=== PATIENT | male | born 1960 | race Caucasian/White ===

== ENCOUNTER 2016-12-30 12:44 | Inpatient (IN) | payer SELFPAY ==
[~2016-12-30] VITALS: Ht 175.3 cm; Wt 74.1 kg
[2016-12-30] MEDS ORDERED: VALACYCLOVIR1 GM PO (12:57)
--- NOTE | 2016-12-30 12:57 | NUR ---
PT TO ROOM FOR EXAM
--- NOTE | 2016-12-30 13:21 | NUR ---
PT TRANSFERRED TO ROOM 10 VIA STRETCHER.
--- NOTE | 2016-12-30 13:39 | NUR ---
FLUIDS INFUSING, INSULIN GIVEN
--- NOTE | 2016-12-30 13:41 | NUR ---
PT MOVED TO ROOM 10, INSPECTION OF RIGHT GREAT TOE NOTED THAT TOE IS RED/SWOLLEN/ SKIN PEELING FROM TOP AND SIDES
[2016-12-30 13:48] LABS: HEMATOCRIT 38.8 % (39.0-50.0); HEMOGLOBIN 14.1 g/dl (14.0-18.0); IMMATURE GRANULOCYTES 0.8 % (0.0-1.0); MEAN CORPUSCULAR HGB 29.8 pG CALC (26.0-32.0); MEAN CORPUSCULAR HGB CONC 36.3 g/L CALC (32.0-36.0); NEUT# 9.92 thou/uL (1.82-7.42); RED BLOOD COUNT 4.73 mill/uL (4.70-6.10); RED CELL DISTRI WIDTH 11.1 % (11.5-15.5)
[2016-12-30 14:00] LABS: ALKALINE PHOSPHATASE 139 u/l (38-126); ANION GAP 18 (6-22 (CALC)); BILIRUBIN, TOTAL 0.5 mg/dL (0.0-1.4); BUN 12 mg/dL (9-20); BUN/CREATININE RATIO 16 (12-20 (CALC)); CALCIUM 9.6 mg/dL (8.4-10.2); CARBON DIOXIDE 28 mmol/l (22-30); CHLORIDE 87 mmol/l (95-108); CREATININE 0.8 mg/dL (0.7-1.3); GFR > 60 ML/MIN (>=60 (CALC)); GFR FOR AFR.AMER. > 60 ML/MIN (>=60 (CALC)); POTASSIUM 4.5 mmol/l (3.5-5.1); SGOT/AST 18 u/l (17-59); SGPT/ALT 28 u/l (21-72); SODIUM 129 mmol/l (137-146)
[2016-12-30 14:11] LABS: GLUCOSE 559 mg/dL (75-110)
[2016-12-30 14:12] LABS: MYOGLOBIN 15 ng/mL (0 - 121)
--- NOTE | 2016-12-30 14:25 | NUR ---
DR. SEBASTIAN SPEAKING WITH ABOUT POSSIBLE ADMISSION
--- NOTE | 2016-12-30 14:50 | NUR ---
PT RESTING QUIETLY ON STRETCHER, AWAITING ADMISSION. PICTURES TAKEN OF TOE FOR WOUND DOCUMENTATION. WILL SEND TO THE FLOOR
--- NOTE | 2016-12-30 15:00 | NUR ---
ACCUCHECK RETAKEN 304
--- NOTE | 2016-12-30 15:37 | NUR ---
SBAR PRINTED TO [facility] AT 2115
[2016-12-30 15:48] LABS: URINE BILIRUBIN - DIPSTICK NEGATIVE (NEGATIVE); URINE BLOOD DIPSTICK TRACE-INTACT (NEGATIVE); URINE CLARITY CLEAR; URINE COLOR YELLOW; URINE GLUCOSE - DIPSTICK >=1000 mg/dL (NEGATIVE); URINE KETONE NEGATIVE (NEGATIVE); URINE LEUK ESTERASE NEGATIVE (NEGATIVE); URINE NITRITE - DIPSTICK NEGATIVE (Negative); URINE PROTEIN - DIPSTICK NEGATIVE (NEG-TRACE); URINE SPECIFIC GRAVITY <=1.005; URINE UROBILINOGEN - DIPSTICK 0.2 E.U./dL (0.2)
--- NOTE | 2016-12-30 16:23 | NUR ---
DR. BRANNON IN SEEING PT AT THIS TIME, ACCUCHECK 252
--- NOTE | 2016-12-30 16:35 | NUR ---
DR. BETANCOURT IS DEBRIDING GREAT TOE, PT TOLERATING WELL.
--- NOTE | 2016-12-30 16:55 | NUR ---
START VANCOMYCIN 1 GRAM Q12H Age: 56 years Weight: 73 kg Height: 69 in Gender: Male SCR: 0.8 mg/dl Dosing weight: 73 kg CRCL (ml/min): 104.3 NEXT TROUGH DUE 01/01 BEFORE AM DOSE
--- NOTE | 2016-12-30 17:12 | NUR ---
REPORT GIVEN TO ICU FOR CONTINUATION OF CARE
--- NOTE | 2016-12-30 17:35 | NUR ---
PT ARRIVED TO THE FLOOR VIA STRETCHER AND ONE PERSON ASSISTANCE FROM NURSING STAFF. PT AMBULATORY FROM STRETCHER TO BED. PT APPREHENSIVE OF HAVING ASSISTANCE IN REGARDS TO FOOT WITH BANDAGE. PT STATES "ILL DO IT MYSELF." PT ASSESSED AND HISTORY OBTAINED. ORIENTATED TO ROOM, RIGHTS, RESPONSIBILITIES, AND CALL LIGHT. INSTRUCTED PT TO CALL FOR ASSISTANCE, PT VERBALIZES UNDERSTANDING.
--- NOTE | 2016-12-30 18:22 | NUR ---
CONSENT OBTAINED AND SIGNED AT THIS TIME, FOR INCISION AND DRAINAGE OF RIGHT GREAT TOE WITH POSSIBLE AMPUTATION OF RIGHT GREAT TOE. PT DENIES ANY QUESTIONS AT THIS TIME, TYLENOL GIVEN FOR FEVER OF 101.5. MD AWARE. IV FLUIDS AND ABX INFUSING THROUGH PATENT IV SITE. PT DENIES PAIN AT THIS TIME. CALL LIGHT WITHIN REACH. INSTRUCTED PT TO CALL FOR ASSISTANCE, PT VERBALIZES UNDERSTANDING.
--- NOTE | 2016-12-30 18:50 | NUR ---
REPORT RECEIVED FROM VALARIE GOMEZ RN AND SELENA MUELLER LPN; ASSUMED PT CARE; INTRODUCED SELF TO PT; DENIES NEEDS AT THIS TIME; NOT DISTRESS NOTED; RESP EVEN AND UNLABORED; CALL ZENDEJAS IS WITHIN REACH WILL CONTINUE TO MONITOR.
--- NOTE | 2016-12-30 19:45 | NUR ---
REPORT CALLED TO JOSSUE ESCOBAR IN MED/SURG AT THIS TIME.
[2016-12-30 20:20] VITALS: BP 135/80
--- NOTE | 2016-12-30 20:20 | NUR ---
PT ARRIVED TO UNIT VIA WHEELCHAIR WITH MAXI DAO. AMBULATED TO BED WITH SUPERVISION. PT ORIENTED TO ROOM. DENIES PAIN AT THIS TIME. RESPIRATIONS EVEN AND UNLABORED. PLAN OF CARE DISCUSSED. PT ENCOURAGED TO VERBALIZE CONCERNS. STATES UNDERSTANDING. SAFETY MEASURES IN PLACE. BED CRADLE APPLIED TO BED PER PT REQUEST. CALL LIGHT SYSTEM REVIEWED AND IN REACH.
--- NOTE | 2016-12-30 20:20 | NUR ---
THIS [facility] TRANSPORTED PT VIA W/C, IV TO MED/SURG ROOM 283; X2 FAMILY MEMBERES ACCOMPANIED PT; PT TOLERATED ACTIVITY WELL. INTRODUCED PT TO NURSE.
[2016-12-30 23:54] VITALS: BP 145/83
[2016-12-31] VITALS (7 sets, daily range): BP systolic 125–165; BP diastolic 68–89
--- NOTE | 2016-12-31 00:20 | NUR ---
PT RESTING IN BED WATCHING TV. DENIES PAIN. HAS NO REQUESTS AT THIS TIME. RESPIRATIONS EVEN AND UNLABORED. SAFETY MEASURES IN PLACE. CALL LIGHT WITHIN REACH.
--- NOTE | 2016-12-31 04:12 | NUR ---
PT ASLEEP AT THIS TIME. NO SIGNS OF PAIN/DISTRESS. RESPIRATIONS EVEN AND UNLABORED. ABT INFUSED; PT TOLERATED WELL. SAFETY MEASURES IN PLACE. CALL LIGHT WITHIN REACH.
--- NOTE | 2016-12-31 07:00 | NUR ---
SHIFT CHANGE REPORT FROM NINFA ESCOBAR AWAKE ALERT AND ORIENTED RESTING IN BED, NO C/O DISCOMFORT AT THIS TIME, CALL ZENDEJAS IN REACH.
--- NOTE | 2016-12-31 07:48 | NUR ---
OR STAFF HERE AT THIS TIME TO TRANSORT PT DOWN TO OR FOR PROCEDURE, LEAVING UNIT NOW.
--- NOTE | 2016-12-31 10:31 | NUR ---
REPORT RECEIVED FROM MILLI IN PACU, PT ARRIVED ON UNIT VIA STRETCHER AND SETTLED IN BED, R. LEG ELEVATED ON PILLOWS, SURGICAL DRESSING CLEAN DRY AND INTACT, NO SIGN DRAINAGE, VITAL SIGNS BEING MONITORED, CALL ZENDEJAS IN REACH. FAMILY AT BEDSIDE.
--- NOTE | 2016-12-31 15:10 | NUR ---
DR ROBLEDO CALLED TO INQUIRE ABOUT FURTHER TREATMENTS FOR PT, VOICE MESSAGE LEFT, AWAITING CALL-BACK.
--- NOTE | 2016-12-31 19:00 | NUR ---
RECEIVED REPORT ON PATIENT. PATIENT RESTING IN BED AND IN NO APPARENT DISTRESS. DENIES PAIN AT THIS TIME. OPERATIVE EXTREMETY LUI WRAPPED AND ELEVATED ON PILLOW. NO DRAINAGE NOTED. WILL CONTINUE TO MONITOR.
--- NOTE | 2016-12-31 19:59 | NUR ---
NAZ (RADIOLOGIST) QUESTIONED ULTRASOUND ORDERS, I CONTACTED DR CARRERA WHO INFORMED ME HE NEEDED AN FELICIA TEST (ANKLE BEACHIAL INDEX). CONTACTED NAZ WHO ADVICED TO ADD NOTE TO ORDERS.
--- NOTE | 2016-12-31 20:17 | NUR ---
DR CARRERA ORDER CONSULT FOR VASCULAR SURGEON AFTER VASCULAR STUDY IS DONE.
--- NOTE | 2017-01-01 | NUR ---
PATIENT RESTING QUIETLY WITH EYES CLOSED. NO ACUTE DISTRESS NOTED.
--- NOTE | 2017-01-01 04:00 | NUR ---
PATIENT LAYING IN BED AND AWAKE. PT'S NOT IN ANY APPARENT DISTRESS. PT STATES "I CAN'T GET COMFORTABLE". OPERATIVE EXTREMETY ELEVATED ON PILLOW. DENIES PAIN.
[2017-01-01 04:06] VITALS: BP 169/95
[2017-01-01 05:23] VITALS: BP 134/81
[2017-01-01 05:53] LABS: HEMATOCRIT 32.4 % (39.0-50.0); HEMOGLOBIN 11.5 g/dl (14.0-18.0); IMMATURE GRANULOCYTES 1.2 % (0.0-1.0); MEAN CELL VOLUME 83.1 fL CALC (80.0-100.0); MEAN CORPUSCULAR HGB 29.5 pG CALC (26.0-32.0); MEAN CORPUSCULAR HGB CONC 35.5 g/L CALC (32.0-36.0); RED BLOOD COUNT 3.9 mill/uL (4.70-6.10); RED CELL DISTRI WIDTH 11.2 % (11.5-15.5)
[2017-01-01 06:04] LABS: ANION GAP 13 (6-22 (CALC)); BUN 9 mg/dL (9-20); BUN/CREATININE RATIO 13 (12-20 (CALC)); CALCIUM 8.5 mg/dL (8.4-10.2); CARBON DIOXIDE 27 mmol/l (22-30); CHLORIDE 97 mmol/l (95-108); CREATININE 0.7 mg/dL (0.7-1.3); GFR > 60 ML/MIN (>=60 (CALC)); GFR FOR AFR.AMER. > 60 ML/MIN (>=60 (CALC)); GLUCOSE 208 mg/dL (75-110); POTASSIUM 3.9 mmol/l (3.5-5.1); SODIUM 132 mmol/l (137-146)
--- NOTE | 2017-01-01 07:00 | NUR ---
RECEIVED BEDSIDE REPORT FROM TRAM GERMAN. PT IN SEMI FOWLERS POSITION WITH RIGHT FOOT ELEVATED ON 3 PILLOWS. DRESSING TO RIGHT FOOT CDI. SCD TO LEFT LOWER EXTREMITY. RESPS EVEN AND UNLABORED ON ROOM AIR. #20 LAC INFUSING WITHOUT DIFFICULTY, SITE APPEARS HEALTHY. DENIES PAIN OR DISCOMFORT. PLAN OF CARE DISCUSSED. SAFETY PRECAUTIONS REINFORCED. BED IN LOWEST POSITION WITH WHEELS LOCKED. CALL LIGHT WITHIN REACH. ENCOURAGED PT TO CALL FOR ANY NEEDS.
--- NOTE | 2017-01-01 07:00 | NUR ---
REPORT GIVEN TO JOSH GERMAN. NURSE WAS INFORMED TO CONSULT DR DUNAWAY AFTER VASCULAR STUDY IS DONE.
[2017-01-01 07:32] VITALS: BP 156/89
--- NOTE | 2017-01-01 08:15 | NUR ---
Vancomycin single level analysis: Current dose being given: 1000 mg Current dosing interval: 12 hrs Current infusion time (hrs): 2 Diagnosis:TOE INFECTION Recommendations: Give Vancomycin 1000 mg q 8 hrs. Infuse over 2 HOURS Renal dosing of other antibiotics (review renal dosing of other medications and list guidelines here): Thank you for the consult, will continue to follow. Signature: PERCY JJ PHARMD
--- NOTE | 2017-01-01 13:11 | NUR ---
TO ULTRASOUND IN STABLE CONDITION VIA WHEELCHAIR ACCOMPANIED BY VOLUNTEER.
--- NOTE | 2017-01-01 14:05 | NUR ---
FROM ULTRASOUND VIA WHEELCHAIR ACCOMPANIED BY VOLUNTEER. TRANSFERRED TO BED WITH STAND BY ASSIST. NON WEIGHT BEARING RIGHT FOOT. DRESSING TO RIGHT FOOT CDI, SURGICAL SHOE IN PLACE. SCD TO LEFT LOWER EXTREMITY. #20 LAC FLUSES WELL, INFUSING WITHOUT DIFFICULTY, SITE APPEARS HEALTHY. RIGHT FOOT PROPPED ON 3 PILLOWS. CALL LIGHT WITHIN REACH. WILL CONTINUE TO MONITOR.
--- NOTE | 2017-01-01 15:56 | NUR ---
IN SEMI FOWLERS WITH RIGHT FOOT ELEVATED ON 3 PILLOWS. RESPS EVEN AND UNLABORED ON ROOM AIR. DRESSING TO RIGHT FOOT CDI. SCD TO LEFT LOWER EXTREMITY. #20 LAC INFUSING WITHOUT DIFFICULTY, SITE APPEARS HEALTHY. VOICES NO C/O. VISITORS AT BEDSIDE. CALL LIGHT WITHIN REACH. ENCOURAGED PT TO CALL FOR ANY NEEDS.
[2017-01-01 16:00] VITALS: BP 138/84
--- NOTE | 2017-01-01 19:00 | NUR ---
RECEIVED BEDSIDE REPORT FROM MAXI MORENO. PATIENT LAYING IN BED. DENIES PAIN OR DISCOMFORT. PATIENT ABLE TO WIGGLE TOES ON OPERATIVE EXTREMETY.
[2017-01-01 19:22] VITALS: BP 159/83
[2017-01-02] VITALS (10 sets, daily range): BP systolic 131–175; BP diastolic 80–98
--- NOTE | 2017-01-02 | NUR ---
PATIENT LAYING IN BED WITH EYES CLOSED. NO ACUTE DISTRESS NOTED. IV FLUIDS INFUSING WITHOUT DIFFICULTY.
--- NOTE | 2017-01-02 04:00 | NUR ---
NO ACUTE CHANGES NOTED IN PATIENT'S CONDITION. LAYING IN BED WITH EYES CLOSED AND IS IN NO APPARENT DISTRESS.
[2017-01-02 05:56] LABS: HEMOGLOBIN 12.2 g/dl (14.0-18.0); IMMATURE GRANULOCYTES 2.4 % (0.0-1.0); MEAN CELL VOLUME 85.6 fL CALC (80.0-100.0); MEAN CORPUSCULAR HGB 29.8 pG CALC (26.0-32.0); MEAN CORPUSCULAR HGB CONC 34.9 g/L CALC (32.0-36.0); NEUT# 6.39 thou/uL (1.82-7.42); RED BLOOD COUNT 4.09 mill/uL (4.70-6.10); RED CELL DISTRI WIDTH 11.1 % (11.5-15.5)
[2017-01-02 06:30] LABS: ANION GAP 13 (6-22 (CALC)); BUN 7 mg/dL (9-20); BUN/CREATININE RATIO 12 (12-20 (CALC)); CALCIUM 8.9 mg/dL (8.4-10.2); CARBON DIOXIDE 28 mmol/l (22-30); CHLORIDE 98 mmol/l (95-108); CREATININE 0.6 mg/dL (0.7-1.3); GFR > 60 ML/MIN (>=60 (CALC)); GFR FOR AFR.AMER. > 60 ML/MIN (>=60 (CALC)); GLUCOSE 118 mg/dL (75-110); POTASSIUM 3.9 mmol/l (3.5-5.1); SODIUM 136 mmol/l (137-146)
--- NOTE | 2017-01-02 07:00 | NUR ---
RECEIVED BEDSIDE REPORT FROM TRAM GERMAN. PT RESTING IN SUPINE POSITION WITH EYES CLOSED, AWAKENS EASILY. RESPS EVEN AND UNLABORED ON ROOM AIR. RIGHT FOOT ELEVATED ON 3 PILLOWS, DRESSING CDI, SURGICAL BOOT IN PLACE. SCD TO LEFT LOWER EXTREMITY. #20 LAC INFUSING WITHOUT DIFFICULTY, SITE APPEARS HEALTHY. PLAN OF CARE DISCUSSED. SAFETY PRECAUTIONS REINFORCED. BED IN LOWEST POSITION WITH WHEELS LOCKED. CALL LIGHT WITHIN REACH. ENCOURAGED PT TO CALL FOR ANY NEEDS.
--- NOTE | 2017-01-02 08:15 | NUR ---
DR VAZQUEZ IN TO SEE PT, NO NEW ORDERS.
--- NOTE | 2017-01-02 08:34 | NUR ---
PHYSICAL THERAPY IN TO SEE PT.
--- NOTE | 2017-01-02 08:52 | NUR ---
PT WAS ABLE TO ASSUME SITTING FROM SUPINE INDEPENDENTLY. [id number] WITH WALKER. INSTRUCTED ON FALL PRECAUTIONS PRIOR TO AMBULATION. AMB FROM HIS ROOM TO THE END OF HALLWAY ~80 FT. W/ RW AND CGA, IV IN PLACE. PT RETURNED TO REST IN HIS BED WITH CALL LIGHT BESIDE HIM. NO S/SX OF ADVERSE RXNS NOTED OR REPORTED AT THE END OF TX.
--- NOTE | 2017-01-02 10:15 | NUR ---
TO OR VIA STRETCHER ACCOMPANIED BY SHYLA GERMAN.
--- NOTE | 2017-01-02 13:00 | NUR ---
FROM OR VIA STRETCHER ACCOMPANIED BY SHYLA GREMAN. PT AMBULATED TO BED WITH STAND BY ASSIST. #20RH INFUSING WITHOUT DIFFICULTY, SITE APPEARS HEALTHY. DRESSING TO RIGHT FOOT CDI, RIGHT FOOT ELEVATED ON 3 PILLOWS. SCD TO LEFT LOWER EXTREMITY. ORIENTED TO ROOM AND CALL SYSTEM. SAFETY PRECAUTIONS REINFORCED. BED IN LOWEST POSITION WITH WHEELS LOCKED. CALL LIGHT WITHIN REACH. WILL CONTINUE TO MONITOR.
--- NOTE | 2017-01-02 16:00 | NUR ---
RESTING IN SUPINE POSITION WITH RIGHT FOOT ELEVATED ON 3 PILLOWS. DRESSING TO RIGHT FOOT CDI, SURGICAL SHOE IN PLACE. #22 LFA INFUSING WITHOUT DIFFICULTY, SITE APPEARS HEALTHY. DENIES PAIN OR DISCOMFORT. CALL LIGHT WITHIN REACH.
[2017-01-02] MEDS ORDERED: LORTAB5 PO (17:47)
[2017-01-02] MEDS ORDERED: LIPITOR20 MG PO (17:47)
[2017-01-02] MEDS ORDERED: GLUCOPHAGE500 MG PO (17:47)
--- NOTE | 2017-01-02 20:10 | NUR ---
awake. no c/o pain voiced. #22 lfa saline lock. po fluids taken well. voids per urinal. dsg cdi. surgical shoe cont to rt foot & elevated on pillows. scd conts to lt leg. fall precautions cont.
--- NOTE | 2017-01-03 00:01 | NUR ---
eyes closed. no distress. no apparent pain.
[2017-01-03 00:10] VITALS: BP 131/74
[2017-01-03 03:40] VITALS: BP 147/85
--- NOTE | 2017-01-03 04:00 | NUR ---
resting quietly. resps evwen & unlabored. no apparent distress.
--- NOTE | 2017-01-03 07:00 | NUR ---
RECEIVED BEDSIDE REPORT FROM THOM MARCUM. PT RESTING IN BED WITH EYES CLOSED. RIGHT FOOT ELEVATED ON 3 PILLOWS, DRESSING TO RIGHT FOOT CDI, SURGICAL SHOE IN PLACE. SCD TO LEFT LOWER EXTREMITY. DENIES PAIN OR DISCOMFORT. PLAN OF CARE DISCUSSED. SAFETY PRECAUTIONS REINFORCED. BED IN LOWEST POSITION WITH WHEELS LOCKED. CALL LIGHT WITHIN REACH. WILL CONTINUE TO MONITOR.
[2017-01-03] MEDS ORDERED: GLIPIZIDE5 M2 PO (07:18)
[2017-01-03 08:27] VITALS: BP 135/84
--- NOTE | 2017-01-03 08:38 | NUR ---
DR VAZQUEZ IN TO SEE PT, NEW ORDERS RECEIVED.
--- NOTE | 2017-01-03 09:10 | NUR ---
RESTING IN BED WITH RIGHT FOOT ELEVATED ON 3 PILLOWS. DRESSING TO RIGHT FOOT CDI, SURGICAL SHOE IN PLACE. CAP REFILL BRISK, TOES TO RIGHT FOOT WARM TO TOUCH. RESPS EVEN AND UNLABORED ON ROOM AIR. C/O 2/10 HEADACHE, MEDICATED WITH TYLENOL 650MG PO FOR RELIEF. TOLERATING REGULAR ADA DIET WITHOUT C/O NAUSEA OR ABD PAIN. CALL LIGHT WITHIN REACH. ENCOURAGED PT TO CALL FOR ANY NEEDS.
--- NOTE | 2017-01-03 11:00 | NUR ---
PHONE CALL TO DR BETANCOURT. DISCHARGE INSTRUCTIONS FOLLOWS. NON WT BEARING, FOLLOW UP IN HIS SHERY[facility] OFFICE 2 WEEKS FROM YESTERDAY, DRESSING TO REMAIN CDI, REINFORCE NEEDED, ELEVATE ON 3 PILLOWS WHILE IN BED, PT TO PROVIDE CRUTCH ASSISTANCE, PO ANTIBIOTIC FROM DR VAZQUEZ. DR VAZQUEZ NOTIFIED.
[2017-01-03] MEDS ORDERED: PENICILLN VK500 MG PO (11:48)
--- NOTE | 2017-01-03 15:46 | NUR ---
PHYSICAL THERAPY IN WITH PT.
--- NOTE | 2017-01-03 16:05 | NUR ---
Pt seen this pm for gait training with crutches using gait belt and non skid socks. Sit to and from stand/gait and proper use and placement of crutches practiced mult times until pt followed proper precedure and able to do with supervision only. Crutch precautions (wet floor, paper, dust bunnies) instructed to avoid. Proper elevation and importance of elevation for foot to heal instructed. Pt instructed to have supervision/CGA initially at home with crutch use. Pt stated he does not have steps at home. Nursing aware of above. Pts sister present during treatment.
== END 2017-01-03 16:30 | disposition home or self-care (01) | DRG 256 ==
LOC: ENPENDDIS → ED 12:44 → ED-I 14:44 → ED 15:26 → ICU 15:27 → MS2 15:27
PROVIDERS: Emergency Medicine; Internal Medicine; ADMIT Internal Medicine; ATTEND Internal Medicine
PROC: 0Y6P0Z0 Detachment at Right 1st Toe, Complete, Open Approach (ICD-10-PCS; principal; 2016-12-30)
PROC: 0J9Q0ZZ Drainage of Right Foot Subcutaneous Tissue and Fascia, Open Approach (ICD-10-PCS; 2016-12-30)
PROC: 0QBN0ZZ Excision of Right Metatarsal, Open Approach (ICD-10-PCS; 2017-01-02)
PROC: 0YQM0ZZ Repair Right Foot, Open Approach (ICD-10-PCS; 2017-01-02)
DX: E11.52 Type 2 diabetes mellitus with diabetic peripheral angiopathy with gangrene (principal); E87.1 Hypo-osmolality and hyponatremia; E11.621 Type 2 diabetes mellitus with foot ulcer; E11.42 Type 2 diabetes mellitus with diabetic polyneuropathy; L03.115 Cellulitis of right lower limb; E11.65 Type 2 diabetes mellitus with hyperglycemia; L97.519 Non-pressure chronic ulcer of other part of right foot with unspecified severity; E11.628 Type 2 diabetes mellitus with other skin complications; L03.031 Cellulitis of right toe; I10 Essential (primary) hypertension; E78.5 Hyperlipidemia, unspecified; F17.290 Nicotine dependence, other tobacco product, uncomplicated; B95.4 Other streptococcus as the cause of diseases classified elsewhere; Z91.14 Patient's other noncompliance with medication regimen
CPT/HCPCS: J2540

== ENCOUNTER 2017-01-22 13:43 | Inpatient (IN) | payer SELFPAY ==
[~2017-01-22] VITALS: Ht 175.3 cm; Wt 72.8 kg
[~2017-01-22 13:43] MED LIST: GLIPIZIDE5 M2 PO; GLUCOPHAGE500 MG PO; LIPITOR20 MG PO; LORTAB5 PO; PENICILLN VK500 MG PO; VALACYCLOVIR1 GM PO
--- NOTE | 2017-01-22 13:56 | NUR ---
PT TO ROOM 14 VIA WHEELCHAIR
[2017-01-22] MEDS ORDERED: BACTRIM DS1 TAB PO (14:31)
[2017-01-22 14:50] LABS: HEMATOCRIT 38.5 % (39.0-50.0); HEMOGLOBIN 12.8 g/dl (14.0-18.0); IMMATURE GRANULOCYTES 0.5 % (0.0-1.0); MEAN CELL VOLUME 88.1 fL CALC (80.0-100.0); MEAN CORPUSCULAR HGB 29.3 pG CALC (26.0-32.0); MEAN CORPUSCULAR HGB CONC 33.2 g/L CALC (32.0-36.0); NEUT# 5.01 thou/uL (1.82-7.42); RED BLOOD COUNT 4.37 mill/uL (4.70-6.10); RED CELL DISTRI WIDTH 12.1 % (11.5-15.5)
--- NOTE | 2017-01-22 14:58 | NUR ---
IV ESTABLISHED WITH BLOOD DRAWN, RIGHT TOE SWABBED. PT TOLERATED WELL, AWARE OF PENDING ADMISSION.
[2017-01-22 15:45] LABS: ALBUMIN 3.9 g/dL (3.2-5.0); ALKALINE PHOSPHATASE 79 u/l (38-126); ANION GAP 17 (6-22 (CALC)); BILIRUBIN, TOTAL 0.3 mg/dL (0.0-1.4); BUN 20 mg/dL (9-20); BUN/CREATININE RATIO 21 (12-20 (CALC)); CALCIUM 9.5 mg/dL (8.4-10.2); CARBON DIOXIDE 23 mmol/l (22-30); CHLORIDE 100 mmol/l (95-108); GFR > 60 ML/MIN (>=60 (CALC)); GFR FOR AFR.AMER. > 60 ML/MIN (>=60 (CALC)); GLUCOSE 108 mg/dL (75-110); POTASSIUM 4.7 mmol/l (3.5-5.1); SGOT/AST 16 u/l (17-59); SGPT/ALT 30 u/l (21-72); SODIUM 136 mmol/l (137-146); TOTAL PROTEIN 6.9 g/dL (6.3-8.2)
--- NOTE | 2017-01-22 16:31 | NUR ---
Vancomycin dosing Age: 56 years Weight: 73.2 kg Height: 175.26 cm Gender: Male SCR: 1 mg/dl Dosing weight: 73.2 kg IBW: 70.70 kg CRCL (ml/min): 83.5 Pratik (hr-1): 0.074 Half-life (hrs): 9.37 Vd (liters): 51.24 (factor: 0.7 L/kg) Vancomycin 1000 mg q12 hrs to produce a predicted peak of 31 mcg/ml and a predicted trough of 15 mcg/ml based on (Population-based pharmacokinetic analysis). Vancomycin trough on 01/24/17, 30 minutes prior to dose.
--- NOTE | 2017-01-22 16:32 | NUR ---
REPORT CALLED TO JEFFY GERMAN, TAKEN TO FLOOR AT THIS TIME.
--- NOTE | 2017-01-22 16:35 | NUR ---
PT ARRIVED TO FLOOR VIA STETCHER ACCOMPANIED BY ED STAFF. PT AMBULATED TO ROOM. PT'S SISTER PRESENT. PT ORIENTED TO ROOM AND EQUIPMENT. PLAN OF CARE DISCUSSED. REPORTING OF CONCERNS ENCOURAGED. DR. RON IN TO SEE PT. RIGHT FOOT WOUND DRESSING TAKEN DOWN FOR DR. ELVIA CARVALHO, KERLEX DRESSING APPLIED. CALL LIGHT REVIEWED AND IN REACH. PT STAETS UNDERSTANDING.
[2017-01-22 16:36] VITALS: BP 119/82
[2017-01-22 19:07] VITALS: BP 131/76
--- NOTE | 2017-01-22 19:33 | NUR ---
REPORT RECEIVED FROM YURY BARDALES; PT.UPRIGHT IN BED WATCHING TV; NO S/S OF DISTRESS AT THIS TIME; PT.REQUESTED PILLOWS UNDER FOOT, PROVIDED; DENIES ANY FURTHER NEEDS AT THIS TIME; PT.INSTRUCTED TO CALL IF NEEDS ARISE
--- NOTE | 2017-01-22 21:35 | NUR ---
PT.ASSESSED AND MEDICATED ORDERS PROVIDE; PT.LUNGS CLEAR, LOCX3, NO DIFFICULTIES URINATING, BM TODAY; PT.R.GREAT TOE DRESSING CDI; DENIES ANY PAIN OR DISCOMFORT AT THIS TIME; FOOT ELEVATED W/ X1 PILLOW; BS 93, PT PROVIDED SNACK; CALL LIGHT W/IN REACH AND PT.ENCOURAGED TO CALL NEEDS ARISE
[2017-01-22 23:52] VITALS: BP 131/82
[2017-01-23] VITALS (10 sets, daily range): BP systolic 112–138; BP diastolic 71–87
--- NOTE | 2017-01-23 02:30 | NUR ---
PT.SLEEPING AT THIS TIME W/LIGHTS OUT, TV ON; BST AND CALL LIGHT W/IN REACH
--- NOTE | 2017-01-23 05:10 | NUR ---
PT. AMBULATED TO RESTROOM AND MEDICATED W/VANCOMYCIN ORDERED; PT. DENIES ANY FURTHER NEEDS AT THIS TIME; WILL CONTINUE TO MONITOR, PT.ENCOURAGED TO CALL NEEDS ARISE
--- NOTE | 2017-01-23 07:22 | NUR ---
SHIFT CHANGE REPORT FROM NINFA JANE AWAKE ALERT AND ORIENTED RESTING IN BED, DENIES PAIN/DISCOMFORT, ALL NEEDS MET, CALL ZENDEJAS IN REACH.
--- NOTE | 2017-01-23 10:25 | NUR ---
ALFREDO FROM OR HERE TO RECEIVE PT FOR PROCEDURE, LEAVING UNIT AT THIS TIME VIA STRETCHER.
--- NOTE | 2017-01-23 15:00 | NUR ---
RETURNED FROM PROCEDURE VIA STRETCHER WITH RN IRVING, C/O BEING HUNGRY AND WANTS SOMETHING TO EAT NOW, TRANSFERRED TO BED AND SETTLED IN ROOM, VITAL SIGNS BEING MEASURED. ADVISED WILL HAVE SOMETHING TO EAT BUT WILL START WITH LIQUIDS AND ADVANCE TO PREVENT N/V A RESULT OF ANESTHESIA. LIQUIDS OFFERED, CALL ZENDEJAS IN REACH.
--- NOTE | 2017-01-23 16:10 | NUR ---
PT TOLERATED LIQUIDS WELL AND REQUESTING SOLID FOODS NOW, WILL URIEL REQUEST AND CONTINUE TO MONITOR.
--- NOTE | 2017-01-23 20:00 | NUR ---
PATIENT RESTING IN BED AT THIS TIME. PATIENT IS AWAKE ALERT AND ORIENTEDX3. PATIENT WITH POST-OP DRESSING TO RIGHT FOOT SECURED WITH LUI WRAP. RIGHT FOOT ELEVATED ON PILLOWS WITH ICE TO BEHIND RIGHT KNEE. PATIENT WITH IV SITE TO LEFT FOREARM WITH IVF PATENT AND INFUSING AT 75CC/HR. PATIENT WITH ASSIST TO THE BR FOR BM WITH CRUTCHES AND NWB TO RIGHT LE. PATIENT IS VOIDING CLEAR YELLOW URINE WITHOUT ANY DIFFICULTY. PATIENT ASSISTED BACK TO BED-TOLERATED WELL. PATIENT DENIES ANY PAIN AT THIS TIME. STATES THAT HE HAS LITTLE TO NO FEELING IN HIS FEET. SAFETY PRECAUTIONS REINFORCED. CALL LIGHT IN REACH. WILL CONT TO MONITOR.
--- NOTE | 2017-01-23 22:00 | NUR ---
BS-190. HS SNACK GIVEN. NO COMPLAINTS AT THIS TIME. CALL LIGHT IN REACH. WILL CONT TO MONITOR.
--- NOTE | 2017-01-24 00:33 | NUR ---
PATIENT APPEARS SLEEPING AT THIS TIME. IVF PATENT AND INFUSING ORDERED. CALL LIGHT IN REACH. WILL CONT TO MONITOR.
[2017-01-24 04:25] VITALS: BP 119/76
--- NOTE | 2017-01-24 04:30 | NUR ---
PATIENT RESTING IN BED-NO COMPLAINTS AT THIS TIME. DENIES ANY PAIN AT THIS TIME. PEYTON ARVIZU DRAWN. SMALL AMT OF SEROSANGUINOUS DRAINAGE NOTED ON BOTTOM OF LEFT FOOT DRESSING. LEFT FOOT REMAINS ELEVATED ON PILLOWS. CALL LIGHT IN REACH. WILL CONT TO MONITOR.
--- NOTE | 2017-01-24 07:00 | NUR ---
RECEIVED BEDSIDE REPORT FROM ELMO GERMAN. PT RESTING IN BED WITH EYES CLOSED, AWAKENS EASILY. DENIES PAIN OR DISCOMFORT. RIGHT FOOT ELEVATED ON 3 PILLOWS. PLAN OF CARE DISCUSSED. SAFETY PRECAUTIONS REINFORCED. BED IN LOWEST POSITION WITH WHEELS LOCKED. CALL LIGHT WITHIN REACH. WILL CONTINUE TO MONITOR.
[2017-01-24 10:44] VITALS: BP 126/78
--- NOTE | 2017-01-24 12:00 | NUR ---
RESTING IN BED WITH RIGHT FOOT ELEVATED ON [address] PILLOWS. SURGICAL BOOT IN PLACE. RESPS EVEN AND UNLABORED ON ROOM AIR. #18 LFA INFUSING WITHOUT DIFFICULTY, SITE APPEARS HEALTHY. DENIES PAIN OR DISCOMFORT. VOICES NO NEEDS AT THIS TIME. CALL LIGHT WITHIN REACH. ENCOURAGED PT TO CALL FOR ANY NEEDS.
--- NOTE | 2017-01-24 13:38 | NUR ---
DR RON IN TO SEE PT, NEW ORDERS RECEIVED.
--- NOTE | 2017-01-24 14:04 | NUR ---
Vancomycin single level analysis: Current dose being given: 1000 mg Current dosing interval: 12 hrs Current infusion time (hrs) 2 trough=8 on [id number] @ 0430 Diagnosis:Diabetic foot ulcer Recommendations: Give Vancomycin 1250 mg q 12 hrs. Infuse over 2 hrs next trough due 01/26/17 before 0500 dose Thank you for the consult, will continue to follow.
[2017-01-24 14:52] VITALS: BP 133/81
--- NOTE | 2017-01-24 16:00 | NUR ---
RESTING QUIETLY IN BED WITH RIGHT FOOT ELEVATED. FAMILY AT BEDSIDE. QUESTIONS ANSWERED ABOUT PICC LINE AND OUTPATIENT ANTIBIOTIC THERAPY. WRITTEN EDUCATION GIVEN. PT VERBALIZED UNDERSTANDING. CALL LIGHT WITHIN REACH.
[2017-01-24 18:55] VITALS: BP 128/84
--- NOTE | 2017-01-24 20:05 | NUR ---
PT. SITTING UP IN BED WATCHING TV, NO DISTRESS NOTED. ASSESSMENT COMPLETED. IV SITE PATENT AND INFUSING ORDERED IVF. PT. REPORTS PAIN 1/10 TI RIGHT FOOT, DENIES NEEDS FOR PAIN MEDICATION AT THIS TIME. DRESSING WITH BOOT IN PLACE TO RIGHT FOOT; INTACT. PT. ENCOURAGED TO USE INCENTIVE SPIROMETER EVERY HOUR WHILE AWAKE. SCD IN PLACE TO LLE. RLE ELEVATED ONTO PILLOWS. PT. DENIES NEEDS AT THIS TIME. ENCOURAGED TO CALL FOR ANY NEEDS. CALL LIGHT IS IN REACH.
--- NOTE | 2017-01-24 23:45 | NUR ---
PT. RESTING IN BED WITH NO DISTRESS NOTED. DENIES NEEDS. CALL LIGHT IS IN REACH.
--- NOTE | 2017-01-25 01:18 | NUR ---
PT. RESTING IN BED WITN NO DISTRESS NOTED. DENIES NEEDS/PAIN. NEW BAG OF ORDERED NS HUNG. URINAL EMPTIED OF 700 ML OF CLEAR YELLOW URINE.CALL LIGHT IS IN REACH.
--- NOTE | 2017-01-25 03:01 | NUR ---
PT. RESTING IN BED WITH EYES CLOSED, NO DISTRESS NOTED. RESP EVEN AND UNLABORED. CALL LIGHT IS IN REACH. WILL CONTINUE TO MONITOR.
[2017-01-25 05:12] VITALS: BP 114/69
--- NOTE | 2017-01-25 05:12 | NUR ---
PT. RESTING IN BED WITH NO DISTRESS NOTED. RLE ELEVATED ONTO PILLOWS. NO DISTRESS NOTED. DENIES NEEDS FOR PAIN MEDICATION. PO FLUIDS OFFERED. URINAL EMPTIED. VSS. ENCOURAGED TO CALL FOR ANY NEEDS. CALL LIGHT IS IN REACH.
--- NOTE | 2017-01-25 07:17 | NUR ---
BEDSIDE REPORT RECEIVED FROM MAXI GLORIA. PT SUPINE IN BED. DENIES PAIN. PLAN OF CARE DISCUSSED. FALL PRECAUTIONS REINFORCED. CALL LIGHT REVIEWED AND IN REACH. PT STATES UNDERSTANDING.
[2017-01-25 08:33] VITALS: BP 116/77
[2017-01-25 11:30] LABS: HEMATOCRIT 35.1 % (39.0-50.0); HEMOGLOBIN 11.9 g/dl (14.0-18.0); IMMATURE GRANULOCYTES 0.4 % (0.0-1.0); MEAN CELL VOLUME 85.8 fL CALC (80.0-100.0); MEAN CORPUSCULAR HGB 29.1 pG CALC (26.0-32.0); MEAN CORPUSCULAR HGB CONC 33.9 g/L CALC (32.0-36.0); NEUT# 4.2 thou/uL (1.82-7.42); RED BLOOD COUNT 4.09 mill/uL (4.70-6.10); RED CELL DISTRI WIDTH 11.9 % (11.5-15.5)
--- NOTE | 2017-01-25 12:05 | NUR ---
PT SITTING UPRIGHT IN BED. DENIES PAIN. IS USE ENCOURAGED, PT STATES "I AINT USING THAT THING. IT JUST WEARS ME OUT." INDICATION REVIEWED. PT STATES UNDERSTANDING.
[2017-01-25 12:17] LABS: ALBUMIN 3.4 g/dL (3.2-5.0); ALKALINE PHOSPHATASE 76 u/l (38-126); ANION GAP 13 (6-22 (CALC)); BILIRUBIN, TOTAL 0.3 mg/dL (0.0-1.4); BUN 10 mg/dL (9-20); BUN/CREATININE RATIO 15 (12-20 (CALC)); CALCIUM 9.1 mg/dL (8.4-10.2); CARBON DIOXIDE 28 mmol/l (22-30); CHLORIDE 101 mmol/l (95-108); CREATININE 0.7 mg/dL (0.7-1.3); GFR > 60 ML/MIN (>=60 (CALC)); GFR FOR AFR.AMER. > 60 ML/MIN (>=60 (CALC)); GLUCOSE 166 mg/dL (75-110); POTASSIUM 4.1 mmol/l (3.5-5.1); SGOT/AST 12 u/l (17-59); SGPT/ALT 29 u/l (21-72); SODIUM 138 mmol/l (137-146)
[2017-01-25 15:37] VITALS: BP 118/69
--- NOTE | 2017-01-25 17:33 | NUR ---
PT DENIES PAIN. PLEASANTLY CONVERSATING WITH ENVIRONMENTAL SCIENCES PROFESSOR. NO COMPLAINTS.
[2017-01-25 19:14] VITALS: BP 133/73
--- NOTE | 2017-01-25 21:08 | NUR ---
PT. SITTING UP IN BED WITH NO DISTRESS NOTED. RLE ELEVATED ONTO 2 PILLOWS. DRESSING INTACT TO RIGHT FOOT AND MEDICAL SHOE IN PLACE. PT. DENIES NEEDS/PAIN. ORDERED LOVENOX ADMINISTERED. ASSESSMENT COMPLETED. IV SITE PATENT. INSTRUCTED OF NPO DIET AFTER MIDNIGHT, VERBALIZES UNDERSTANDING. CALL LIGHT IS IN REACH. WILL CONTINUE TO MONITOR.
--- NOTE | 2017-01-25 21:08 | NUR ---
PT. RESTING IN BED WITH NO DISTRESS NOTED. DENIES NEEDS/PAIN. ASSESSMENT COMPLETED. IV SITE PATENT. PT. HAS DRESSING INTACT TO LEFT FOOT WITH MEDICAL SHOE IN PLACE. PT. INSTRUCTED OF NPO DIET AFTER MIDNIGHT, VERBALIZES UNDERSTANDING. SCHED LOVENOX ADMINISTERED. PO FLUIDS OFFERED. ENCOURAGED TO CALL FOR ANY NEEDS. CALL LIGHT IS IN REACH. WILL CONTINUE TO MONITOR.
--- NOTE | 2017-01-25 23:14 | NUR ---
PT. RESTING IN BED WITH NO DISTRESS NOTED. PT. PROVIDED WITH A PIZZA BEFORE BEING MADE NPO. PT. DENIES FURTHER NEEDS. CALL LIGHT IS IN REACH. WILL CONTINUE TO MONITOR.
--- NOTE | 2017-01-26 01:30 | NUR ---
PT. RESTING IN BED WITH NO DISTRESS NOTED. DENIES NEEDS. URINAL EMPTIED, CALL LIGHT IS IN REACH.
[2017-01-26 03:55] VITALS: BP 155/89
--- NOTE | 2017-01-26 05:02 | NUR ---
PT. RESTING IN BED WITH EYES CLOSED, NO DISTRESS NOTED. RESP EVEN AND UNLABORED. CALL LIGHT IS IN REACH.
--- NOTE | 2017-01-26 07:00 | NUR ---
RECEIVED BEDSIDE REPORT FROM FAIZAN GERMAN. PT RESTING IN BED WITH RIGHT FOOT ELEVATED ON PILLOWS. SURGICAL BOOT IN PLACE. #18 LFA INFUSING WITHOUT DIFFICULTY, SITE APPEARS HEALTHY. NPO STATUS REINFORCED. VOICES NO NEEDS AT THIS TIME. PLAN OF CARE DISCUSSED. SAFETY PRECAUTIONS REINFORCED. BED IN LOWEST POSITION WITH WHEELS LOCKED. CALL LIGHT WITHIN REACH. WILL CONTINUE TO MONITOR.
[2017-01-26 07:40] VITALS: BP 132/84
--- NOTE | 2017-01-26 08:00 | NUR ---
PHONE CALL FROM DR BETANCOURT, NEW ORDERS RECEIVED.
--- NOTE | 2017-01-26 08:49 | NUR ---
DR RON IN TO SEE PT, AWAITING NEW ORDERS.
--- NOTE | 2017-01-26 10:54 | NUR ---
Vancomycin single level analysis: Current dose being given: 1250 mg Current dosing interval: 12 hrs Current infusion time (hrs): 2 Single level Trough Data: Trough level obtained: 11 mcg/ml Timing of trough - Number of hours before next dose: 0.5 Hrs Diagnosis: DIABETIC FOOT ULCER Cultures and sensitivities: Other labs: SCR 0.7 Recommendations: CONTINUE Vancomycin 1250 mg q 12 hrs. Infuse over 2 hrs NEXT TROUGH WILL BE DUE Sunday01/28/17 AT 0430 BEFORE 0500 DOSE Thank you for the consult, will continue to follow. Signature: PERCY AGARWALD
--- NOTE | 2017-01-26 13:50 | NUR ---
DR BETANCOURT IN WITH PT, NEW ORDERS RECEIVED.
--- NOTE | 2017-01-26 15:26 | NUR ---
MEDICATED WITH TYLENOL 650MG PO FOR C/O 5/10 HEADACHE. PO FLUIDS OFFERED.
[2017-01-26 16:30] VITALS: BP 131/87
[2017-01-26 19:34] VITALS: BP 143/82
--- NOTE | 2017-01-26 20:00 | NUR ---
PATIENT RESTING IN BED WITH RIGHT FOOT ELEVATED ON PILLOWS. DRESSING TO RIGHT FOOT IS INTACT SECURED WITH LUI WRAP. CMS TO TOES WNL. PATIENT DENIES ANY PAIN AND STATES THAT HIS FEET ARE NUMB FROM DIABETIC NEUROPATY. SAFETY PRECAUTIONS REVIEWED WITH PATIENT. SURGICAL SHOE IN PLACE TO RIGHT FOOT. CALL LIGHT IN REACH. WILL CONT TO MONITOR.
--- NOTE | 2017-01-27 | NUR ---
PATIENT APPEARS SLEEPING AT THIS TIME WITH EYES CLOSED, HOB ELEVATED AND RIGHT FOOT ELEVATED ON PILLOWS. PATIENT IS VOIDING CLEAR YELLOW URINE IN URINE. CALL LIGHT IN REACH. WILL CONT TO MONITOR.
--- NOTE | 2017-01-27 01:29 | NUR ---
PATIENT RESTING IN BED AT THIS TIME WITH RIGHT FOOT ELEVATED ON 2 PILLOWS. RIGHT FOOT DRESSING INTACT WITH LUI WRAP. PATIENT IS ALERT AND ORIENTEDX3. DENIES ANY PAIN AT THIS TIME. PATIENT WITH IVF NS PATENT AND INFUSING AT 75CC/HR. SITE APPEARS HEALTHY AT THIS TIME. SAFETY PRECAUTIONS AND NWB STATUS REINFORCED. CALL LIGHT IN REACH. WILL CONT TO MONITOR.
--- NOTE | 2017-01-27 03:55 | NUR ---
PATIENT APPEARS SLEEPING WITH EYES CLOSED AND RIGHT FOOT ELEVATED ON PILLOWS. CALL LIGHT IN REACH. WILL CONT TO MONITOR.
[2017-01-27 04:15] VITALS: BP 143/70
--- NOTE | 2017-01-27 06:37 | NUR ---
IV SITE CHANGED-NEW SITE #20 GAUGE LEFT FOREARM WITH GOOD BLOOD RETURN. OLD IV SITE TO LEFT FOREARM D/C PER [facility] PROT[facility]-CATH INTACT. IVF NS PATENT AND INFUSING NEW SITE AT 75CC/HR. PATIENT RESTING IN BED. CALL LIGHT IN REACH. WILL CONT TO MONITOR.
--- NOTE | 2017-01-27 07:28 | NUR ---
REPORT RECEIVED FROM MAXI BORREGO. PT SITTING UPRIGHT IN BED. DENIES PAIN. REPORTING OF CONCERNS ENCOURAGED. PLAN OF CARE DISCUSSED. PT STATES UNDERSTANDING.
[2017-01-27 07:52] VITALS: BP 149/88
--- NOTE | 2017-01-27 12:30 | NUR ---
PT DENIES COMPLAINTS AT THIS TIME. WILL CONTINUE TO MONITOR.
[2017-01-27 15:20] VITALS: BP 123/69
--- NOTE | 2017-01-27 15:59 | NUR ---
PT SUPINE IN BED. RIGHT FOOT ELEVATED ON PILLOWS. DENIES PAIN. NO COMPLAINTS AT THIS TIME.
[2017-01-27 18:50] VITALS: BP 136/75
--- NOTE | 2017-01-27 19:00 | NUR ---
RECEIVED SHIFT REPORT FROM MAXI BARDALES. PATIENT LAYING IN BED AND APPEARS TO BE IN NO APPARENT DISCOMFORT OR DISTRESS. PATIENT DIENIES PAIN AT THIS TIME. RIGHT LED ELEVATED ON 3 PILLOWS. WILL CONTINE TO MONITOR.
--- NOTE | 2017-01-28 | NUR ---
PATIENT RESTING QUIETLY IN BED WITH EYES CLOSED. NO ACUTE DISTRESS NOTED.
--- NOTE | 2017-01-28 04:00 | NUR ---
NO CHANGES NOTED IN PATIENT'S CONDITION. PATIENT APPEARS TO BE IN ANY DISCOMFORT. DENIES PAIN.
[2017-01-28 04:22] VITALS: BP 142/91
[2017-01-28 04:52] LABS: HEMATOCRIT 37.5 % (39.0-50.0); HEMOGLOBIN 12.7 g/dl (14.0-18.0); IMMATURE GRANULOCYTES 0.3 % (0.0-1.0); MEAN CELL VOLUME 85.8 fL CALC (80.0-100.0); MEAN CORPUSCULAR HGB 29.1 pG CALC (26.0-32.0); MEAN CORPUSCULAR HGB CONC 33.9 g/L CALC (32.0-36.0); NEUT# 3.73 thou/uL (1.82-7.42); RED BLOOD COUNT 4.37 mill/uL (4.70-6.10); RED CELL DISTRI WIDTH 11.9 % (11.5-15.5)
[2017-01-28 05:18] LABS: ANION GAP 14 (6-22 (CALC)); BUN 10 mg/dL (9-20); BUN/CREATININE RATIO 16 (12-20 (CALC)); CALCIUM 9.6 mg/dL (8.4-10.2); CARBON DIOXIDE 28 mmol/l (22-30); CHLORIDE 100 mmol/l (95-108); CREATININE 0.6 mg/dL (0.7-1.3); GFR > 60 ML/MIN (>=60 (CALC)); GFR FOR AFR.AMER. > 60 ML/MIN (>=60 (CALC)); GLUCOSE 99 mg/dL (75-110); SODIUM 138 mmol/l (137-146)
--- NOTE | 2017-01-28 07:07 | NUR ---
REPORT RECEIVED FROM MAXI UGALDE. PT SLEEPING AT THIS TIME. CALL LIGHT WITHIN REACH.
[2017-01-28 07:18] VITALS: BP 128/78
--- NOTE | 2017-01-28 08:01 | NUR ---
PT SITTING UPRIGHT IN BED. DENIES PAIN. REPORTING OF CONCERNS ENCOURAGED. PLAN OF CARE DISCUSSED. PT STATES UNDERSTANDING.
[2017-01-28 11:00] VITALS: BP 140/85
--- NOTE | 2017-01-28 12:56 | NUR ---
PT SLEEPING. WILL CONTINUE TO MONITOR.
[2017-01-28 16:01] VITALS: BP 127/77
--- NOTE | 2017-01-28 16:45 | NUR ---
PT UP IN RESTROOM, BATHING. TOLERATING ACITIVTY WELL. STATES UNDERSTANDING OF NWB STATUS OF RIGHT FOOT.
[2017-01-28 18:49] VITALS: BP 150/93
--- NOTE | 2017-01-28 19:00 | NUR ---
RECEIVED SHIFT REPORT FROM MAXI BARDALES. PATIENT LAYING IN BED QUIETLY AND APPEARS NOT TO BE IN ANY DISCOMFORT. PATIENT DENIES PAIN. WILL CONTINUE TO MONITOR..
--- NOTE | 2017-01-29 | NUR ---
PATIENT LAYING IN BED WITH EYES CLOSED AND APPEARS TO BE ASLEEP. NO APPARENT ACUTE DISTRESS NOTED.
--- NOTE | 2017-01-29 04:00 | NUR ---
NO ACUTE CHANGES NOTED IN PATIENT'S CONDITION.
[2017-01-29 04:25] VITALS: BP 125/77
[2017-01-29 08:00] VITALS: BP 137/84
--- NOTE | 2017-01-29 08:00 | NUR ---
ASSESSMENT IS COMPLETED: IV SITE IS FREE FROM REDNESS OR EDEMA. DRESSING ON R FOOT IS CDI. DR. BETANCORUT IN TO VISIT WITH PT. CONTINUE TO OSERVE AND MONITOR.
--- NOTE | 2017-01-29 10:16 | NUR ---
REYNALDO FROM [facility] CALLED AND UABLE TO OBTAIN CLEAR IMAGES DUE TO TOO MUCH PACKING. LEFT A MESSAGE ON PHONE.
--- NOTE | 2017-01-29 11:15 | NUR ---
SPOKE WITH AND AL FROM [facility] RE: PT . DR WOULD LIKE THEM TO TRY WITH THE MRI, " NEVER HEARD OF NOT BEING ABLE TO SEE WITH DRESSING ". EXPLAINED RE: FLUID. DOESNOT WANT THE DRESSING OFF.. INFORMED AL AT MRI. VERBALIZED UNDERSTANDING.
--- NOTE | 2017-01-29 12:00 | NUR ---
IV SITE IS FREE FROM REDNESS OR EDEMA. NO DISTRESS NOTED. CONTINUE TO OSBERVE AND MONITOR.
--- NOTE | 2017-01-29 14:38 | NUR ---
INFORMING PT RE: [facility] AND WAITING FOR THEM TO CALL FOR HIM. IV SITE IS FREE FROM REDNESS OR EDEMA.
--- NOTE | 2017-01-29 16:25 | NUR ---
PT IS RELAXING IN BED WITH NO DISTRESS NOTED. RETURNED BACK FROM MRI. IV SITE IS FREE FROM REDNESS OR EDEMA. DRESSING ON R FOOT IS CDI. CONTINUE TO OBSERVE AND MONITOR.
[2017-01-29 17:10] VITALS: BP 151/92
--- NOTE | 2017-01-29 17:42 | NUR ---
PT IS RELAXING IN BED WAITING FOR SUPPER NO DISTRESS NOTED. IV SITE IS FREE FROM REDNESS OR EDEMA.
[2017-01-29 19:12] VITALS: BP 162/77
--- NOTE | 2017-01-29 19:30 | NUR ---
PATIENT RESTING IN BED AT THIS TALKING WITH ANESTHESIA REGUARDING OR IN AM. PATIENT IS ALERT AND ORIENTEDX3. PATIENT VERBALIZES UNDERSTANDING OF OR IN AM AND NPO AFTER MN TONIGHT. PATIENT HAS ALREADY SIGNED CONSENT FOR OR IN AM. RIGHT FOOT WITH DRESSING INTACT-SECURED WITH LUI WRAP. RIGHT FOOT IS ELEVATED ON PILLOWS. PATIENT DENIES ANY PAIN AT THIS TIME. PATIENT VOIDING CLEAR YELLOW URINE IN URINAL. STATES THAT HE HAD BM TODAY. ENCOURAGED USE OF IS Q1H WHILE AWAKE. DEMONSTRATES ABILITY TO USE IS DIRECTED. SAFETY AND NWB STATUS REVIEWED WITH PATIENT. CALL LIGHT IN REACH. WILL CONT TO MONITOR.
--- NOTE | 2017-01-29 23:38 | NUR ---
NEW BAG OF NS HUNG WITH NEW IV TUBING PER [facility] PROTOCOL. IV SITE CONT TO APPEAR HEALTHY AT THIS TIME. URINAL EMPTIED FOR 600CC OF CLEAR YELLOW URINE. RIGHT FOOT REMAINS ELEVATED ON PILLOWS. PATIENT INSTRUCTED NPO AFTER MN AND VERBALIZES UNDERSTANDING OF THE STATED. CALL LIGHT IN REACH. WILL CONT TO MONITOR.
[2017-01-30] VITALS (9 sets, daily range): BP systolic 95–146; BP diastolic 53–101
--- NOTE | 2017-01-30 05:49 | NUR ---
PATIENT APPEARS SLEEPING AT THIS TIME WITH EYES CLOSED. CALL LIGHT IN REACH. WILL CONT TO MONITOR.
--- NOTE | 2017-01-30 08:59 | NUR ---
PT TO OR VIA STRETCHER ACCOMPANIED BY STAFF;
--- NOTE | 2017-01-30 11:32 | NUR ---
PT RETURN FROM OR VIA STRETCHER ACCOMPANIED BY STAFF; TRANSFERED SELF TO BED WITH MIN ASSISTANCE; PT A/O X3; DENIES PAIN; DRSG TO RT FOOT CDI; SCD IN PLACE TO LLE; CALL ZENDEJAS WITHIN REACH; WILL CONTINUE TO MONITOR.
[2017-01-30] MEDS ORDERED: GLUCOPHAGE500 MG PO (12:14)
[2017-01-30] MEDS ORDERED: PERCOCET 10/31 COMBO PO (12:14)
[2017-01-30] MEDS ORDERED: GLIPIZIDE5 M2 PO (12:14)
[2017-01-30] MEDS ORDERED: ROCEPHIN 2 GM2 GM IV (12:15)
--- NOTE | 2017-01-30 16:34 | NUR ---
Discharge instructions given. Patient verbalizes understanding of same. Discharged in stable condition via Wheelchair to Home with family. All belongings sent with pt.
--- NOTE | 2017-01-30 16:35 | NUR ---
IV SITE TO REMAIN IN D/T PT RECEIVING OUTPT IV ANTIBIOTICS
== END 2017-01-30 16:35 | disposition home or self-care (01) | DRG 478 ==
LOC: ENPENDDIS → ED 13:43 → ED-I 14:19 → ED 15:58 → MS2 15:59
PROVIDERS: Emergency Medicine; Internal Medicine; ADMIT Internal Medicine; ATTEND Internal Medicine
PROC: 0JDQ0ZZ Extraction of Right Foot Subcutaneous Tissue and Fascia, Open Approach (ICD-10-PCS; principal; 2017-01-23)
PROC: 0QBN0ZX Excision of Right Metatarsal, Open Approach, Diagnostic (ICD-10-PCS; 2017-01-23)
PROC: 0QBN0ZX Excision of Right Metatarsal, Open Approach, Diagnostic (ICD-10-PCS; 2017-01-30)
PROC: 0YQP0ZZ Repair Right 1st Toe, Open Approach (ICD-10-PCS; 2017-01-30)
DX: T87.43 Infection of amputation stump, right lower extremity (principal); M86.671 Other chronic osteomyelitis, right ankle and foot; E11.42 Type 2 diabetes mellitus with diabetic polyneuropathy; E11.628 Type 2 diabetes mellitus with other skin complications; T87.81 Dehiscence of amputation stump; L03.031 Cellulitis of right toe; E11.69 Type 2 diabetes mellitus with other specified complication; E11.65 Type 2 diabetes mellitus with hyperglycemia; E78.5 Hyperlipidemia, unspecified; I10 Essential (primary) hypertension; F17.210 Nicotine dependence, cigarettes, uncomplicated; B95.61 Methicillin susceptible Staphylococcus aureus infection as the cause of diseases classified elsewhere; Y83.5 Amputation of limb(s) as the cause of abnormal reaction of the patient, or of later complication, without mention of misadventure at the time of the procedure; Z79.84 Long term (current) use of oral hypoglycemic drugs
CPT/HCPCS: J1650; J3370

== ENCOUNTER 2022-08-01 11:50 | Inpatient (IN) | payer SELFPAY ==
[2022-08-01] VITALS (30 sets, daily range): BP systolic 116–223; BP diastolic 66–109
[~2022-08-01] VITALS: Ht 175.3 cm; Wt 70.0 kg
[~2022-08-01 11:50] MED LIST changes: +BACTRIM DS1 TAB PO; +PERCOCET 10/31 COMBO PO; +ROCEPHIN 2 GM2 GM IV
[2022-08-01 12:29] LABS: HEMATOCRIT 36.8 % (39.0-50.0); HEMOGLOBIN 12.9 g/dl (14.0-18.0); IMMATURE GRANULOCYTES 0.4 % (0.0-5.0); MEAN CELL VOLUME 84.2 fL CALC (80.0-100.0); MEAN CORPUSCULAR HGB 29.5 pG CALC (26.0-32.0); MEAN CORPUSCULAR HGB CONC 35.1 g/dL CAL (32.0-36.0); RED BLOOD COUNT 4.37 mill/uL (4.70-6.10); RED CELL DISTRI WIDTH 11.7 % (11.5-15.5)
[2022-08-01 12:46] LABS: ALBUMIN 4.2 g/dL (3.2-5.0); BILIRUBIN, TOTAL 0.3 mg/dL (0.0-1.4); BUN 18 mg/dL (9-20); BUN/CREATININE RATIO 20 (12-20 (CALC)); CARBON DIOXIDE 25 mmol/l (22-30); CHLORIDE 94 mmol/l (95-108); CREATININE 0.9 mg/dL (0.7-1.3); GFR FOR AFR.AMER. > 60 ML/MIN (>=60 (CALC)); GFR OTHER RACES > 60 ML/MIN (>=60 (CALC)); POTASSIUM 4.4 mmol/l (3.5-5.1); SGOT/AST 30 u/l (17-59)
[2022-08-01 12:47] LABS: ALKALINE PHOSPHATASE 124 u/l (38-126); ANION GAP 14 (6-22 (CALC)); SODIUM 129 mmol/l (137-146)
[2022-08-01 12:51] LABS: INTERNATIONAL NORMALIZED RATIO 0.9 RATIO (0.7-1.3); PROTHROMBIN TIME 9.2 SECONDS (9.0-12.5)
[2022-08-01 16:00] LABS: MAGNESIUM 1.9 mg/dL (1.6-2.3)
[2022-08-01 17:44] LABS: URINE BILIRUBIN - DIPSTICK NEGATIVE (NEGATIVE); URINE BLOOD DIPSTICK MODERATE (NEGATIVE); URINE COLOR YELLOW; URINE GLUCOSE - DIPSTICK >=1000 mg/dL (NEGATIVE); URINE KETONE NEGATIVE (NEGATIVE); URINE LEUK ESTERASE NEGATIVE (NEGATIVE); URINE PROTEIN - DIPSTICK 100 mg/dL (NEG-TRACE); URINE UROBILINOGEN - DIPSTICK 0.2 E.U./dL (0.2)
[2022-08-01 17:47] LABS: URINE NITRITE - DIPSTICK NEGATIVE (Negative)
[2022-08-01 17:53] LABS: URINE WBC 0-2 WBC/hpf (0-5)
[2022-08-02] VITALS (36 sets, daily range): BP systolic 96–216; BP diastolic 60–119
[2022-08-02] MEDS ORDERED: ALLOPURINOL100 MG PO (11:31)
[2022-08-02] MEDS ORDERED: ATORVASTATIN CA10 MG PO (11:31)
[2022-08-02] MEDS ORDERED: METFORMIN500 M2 PO (11:32)
[2022-08-02] MEDS ORDERED: JARDIANCE10 MG PO (11:32)
[2022-08-02 15:43] LABS: HEMATOCRIT 35.2 % (39.0-50.0); HEMOGLOBIN 12.2 g/dl (14.0-18.0); MEAN CELL VOLUME 85.2 fL CALC (80.0-100.0); MEAN CORPUSCULAR HGB 29.5 pG CALC (26.0-32.0); MEAN CORPUSCULAR HGB CONC 34.7 g/dL CAL (32.0-36.0); RED BLOOD COUNT 4.13 mill/uL (4.70-6.10); RED CELL DISTRI WIDTH 11.7 % (11.5-15.5)
[2022-08-02 15:59] LABS: ALKALINE PHOSPHATASE 99 u/l (38-126); ANION GAP 8 (6-22 (CALC)); BILIRUBIN, TOTAL 0.4 mg/dL (0.0-1.4); BUN 14 mg/dL (9-20); BUN/CREATININE RATIO 15 (12-20 (CALC)); CALCULATED LDLCHOLESTEROL 92 mg/dL (62-129 (CALC)); CARBON DIOXIDE 27 mmol/l (22-30); CHLORIDE 101 mmol/l (95-108); CHOLESTEROL HDL RATIO 6.1 (<4.4 (CALC)); CREATININE 0.9 mg/dL (0.7-1.3); GFR FOR AFR.AMER. > 60 ML/MIN (>=60 (CALC)); GFR OTHER RACES > 60 ML/MIN (>=60 (CALC)); HDL CHOLESTEROL 32 mg/dL (>=40); POTASSIUM 4.3 mmol/l (3.5-5.1); SGOT/AST 26 u/l (17-59); SODIUM 131 mmol/l (137-146); TOTAL CHOLESTEROL 197 mg/dl (0-199); TOTAL PROTEIN 5.6 g/dL (6.3-8.2); TOTAL TRIGLYCERIDES 365 mg/dl (30-149); VLDL CHOLESTROL 73 mg/dl (4-45 (CALC))
[2022-08-02 16:06] LABS: ALBUMIN 3.3 g/dL (3.2-5.0)
[2022-08-03] VITALS (15 sets, daily range): BP systolic 118–196; BP diastolic 55–105
[2022-08-03] MEDS ORDERED: ADLT ASA LOW81 MG PO (09:08)
[2022-08-03] MEDS ORDERED: PRAVASTATIN SOD20 MG PO (09:09)
[2022-08-03] MEDS ORDERED: LISINOPRIL10 MG PO (09:09)
[2022-08-03] MEDS ORDERED: LANTUS SOL100 UNIT/M SC (09:11)
== END 2022-08-03 10:15 | disposition home or self-care (01) | DRG 63 ==
LOC: ED 11:50 → ICU 14:09
PROVIDERS: Internal Medicine; ADMIT Internal Medicine; ATTEND Internal Medicine
DX: I63.9 Cerebral infarction, unspecified (principal); R47.01 Aphasia; R29.810 Facial weakness; R29.702 NIHSS score 2; I10 Essential (primary) hypertension; E11.65 Type 2 diabetes mellitus with hyperglycemia; E78.5 Hyperlipidemia, unspecified; F17.200 Nicotine dependence, unspecified, uncomplicated; Z79.84 Long term (current) use of oral hypoglycemic drugs
CPT/HCPCS: J3101; Q9967

== ENCOUNTER 2022-08-10 11:42 | Inpatient (IN) | payer SELFPAY ==
[2022-08-10] VITALS (36 sets, daily range): BP systolic 105–204; BP diastolic 64–127
[~2022-08-10] VITALS: Ht 175.3 cm; Wt 73.6 kg
[~2022-08-10 11:42] MED LIST changes: +ADLT ASA LOW81 MG PO; +ALLOPURINOL100 MG PO; +ATORVASTATIN CA10 MG PO; +JARDIANCE10 MG PO; +LANTUS SOL100 UNIT/M SC; +LISINOPRIL10 MG PO; +METFORMIN500 M2 PO; +PRAVASTATIN SOD20 MG PO
--- NOTE | 2022-08-10 12:10 | NUR ---
PT AMBULATED TO TX ROOM
[2022-08-10 12:27] LABS: HEMATOCRIT 35.8 % (39.0-50.0); HEMOGLOBIN 12.4 g/dl (14.0-18.0); IMMATURE GRANULOCYTES 0.3 % (0.0-5.0); MEAN CELL VOLUME 86.1 fL CALC (80.0-100.0); MEAN CORPUSCULAR HGB 29.8 pG CALC (26.0-32.0); MEAN CORPUSCULAR HGB CONC 34.6 g/dL CAL (32.0-36.0); NEUT# 3.54 thou/uL (1.82-7.42); RED BLOOD COUNT 4.16 mill/uL (4.70-6.10); RED CELL DISTRI WIDTH 11.8 % (11.5-15.5)
[2022-08-10 12:41] LABS: PROTHROMBIN TIME 9.8 SECONDS (9.0-12.5)
[2022-08-10 12:44] LABS: ALKALINE PHOSPHATASE 94 u/l (38-126); ANION GAP 8 (6-22 (CALC)); BILIRUBIN, TOTAL 0.5 mg/dL (0.0-1.4); BUN 14 mg/dL (9-20); BUN/CREATININE RATIO 16 (12-20 (CALC)); CARBON DIOXIDE 29 mmol/l (22-30); CHLORIDE 104 mmol/l (95-108); CREATININE 0.9 mg/dL (0.7-1.3); GFR FOR AFR.AMER. > 60 ML/MIN (>=60 (CALC)); GFR OTHER RACES > 60 ML/MIN (>=60 (CALC)); POTASSIUM 4.1 mmol/l (3.5-5.1); SGOT/AST 35 u/l (17-59); SODIUM 137 mmol/l (137-146)
[2022-08-10 12:45] LABS: ALBUMIN 4.1 g/dL (3.2-5.0); TOTAL PROTEIN 6.9 g/dL (6.3-8.2)
--- NOTE | 2022-08-10 15:54 | NUR ---
BEDSIDE REPORT GIVEN TO NINA GERMAN IN ICU
[2022-08-10 15:55] LABS: URINE BILIRUBIN - DIPSTICK NEGATIVE (NEGATIVE); URINE BLOOD DIPSTICK SMALL (NEGATIVE); URINE COLOR YELLOW; URINE GLUCOSE - DIPSTICK >=1000 mg/dL (NEGATIVE); URINE KETONE NEGATIVE (NEGATIVE); URINE LEUK ESTERASE NEGATIVE (NEGATIVE); URINE PH 5.5 (4.5-8.0); URINE PROTEIN - DIPSTICK 100 mg/dL (NEG-TRACE); URINE SPECIFIC GRAVITY 1.025; URINE UROBILINOGEN - DIPSTICK 0.2 E.U./dL (0.2)
[2022-08-10 15:59] LABS: URINE NITRITE - DIPSTICK NEGATIVE (Negative)
[2022-08-10 16:08] LABS: URINE WBC 0-2 WBC/hpf (0-5)
--- NOTE | 2022-08-10 16:53 | NUR ---
COMPLETED ADMISSION ASSESSMENT, NIH SCORE 1 ATAXIA ON RIGHT UPPER LIMB, PT ABLE TO WALK, PT ON ROOM AIR WITH CLEAR LUNG SOUNDS, PT DENIES ANY PAIN OR ANY OTHER COMPLAINTS AT THIS TIME, CONTINUE TO MONITOR
--- NOTE | 2022-08-10 17:40 | NUR ---
INFORMED BY DR RON THAT DR ARGUELLO WAS INFORMED BY THE NEUROLOGIST THAT A BP BELOW 220 IS NOT CONCERNING
--- NOTE | 2022-08-10 18:18 | NUR ---
PT IN BED WATCHING TV AND EATING, PT DENIES ANY COMPLAINTS AT THIS TIME, CONTINUE TO MONITOR
--- NOTE | 2022-08-10 19:00 | NUR ---
RECEIVED REPORT FROM OFF-GOING NURSE. PT RESTING IN BED. NO DISTRESS. VSS.
--- NOTE | 2022-08-10 20:58 | NUR ---
PT RESTING IN BED. AWAKE AND ALERT. TOLERATED BEDTIME SNACK WELL. PT C/O NEUROPATHY TO BLE. SENSATION THE SAME ON BOTH SIDES. CONTINUES WITH ATAXIA TO RUE. RT GREAT TOE AMPUTATION NOTED. SOFT TISSUE SWELLING TO OCCIPITAL AREA. PT REPORTS SWELLING IMPROVED. AREA TENDER TO TOUCH.
--- NOTE | 2022-08-10 23:00 | NUR ---
RESTING WITH EYES CLOSED. EASILY AROUSED. NO CHANGE IN ASSESSMENT.
--- NOTE | 2022-08-10 23:38 | NUR ---
PT AWAKE. BLANKET PROVIDED. NO DISTRESS. PT REPOSITIONS SELF FOR COMFORT. MONITOR WIRES UNTANGLED. VSS. CONTINUING TO MONITOR CLOSELY.
[2022-08-11] VITALS (33 sets, daily range): BP systolic 104–183; BP diastolic 59–119
--- NOTE | 2022-08-11 02:12 | NUR ---
PT AWAKE AND ALERT. NO CHANGE IN ASSESSMENT AT THIS TIME. PT VOID TO URINAL. CLEAR YELLOW URINE NOTED.
--- NOTE | 2022-08-11 04:15 | NUR ---
PT RESTING WITH EYS CLOSED. EASILY AROUSED. BREATH SOUNDS CLEAR. NO DISTRESS.
[2022-08-11 05:50] LABS: HEMATOCRIT 33.1 % (39.0-50.0); HEMOGLOBIN 11.4 g/dl (14.0-18.0); MEAN CELL VOLUME 86.9 fL CALC (80.0-100.0); MEAN CORPUSCULAR HGB 29.9 pG CALC (26.0-32.0); MEAN CORPUSCULAR HGB CONC 34.4 g/dL CAL (32.0-36.0); RED BLOOD COUNT 3.81 mill/uL (4.70-6.10); RED CELL DISTRI WIDTH 11.9 % (11.5-15.5)
[2022-08-11 06:11] LABS: ANION GAP 9 (6-22 (CALC)); BUN 15 mg/dL (9-20); BUN/CREATININE RATIO 17 (12-20 (CALC)); CARBON DIOXIDE 27 mmol/l (22-30); CHLORIDE 103 mmol/l (95-108); CREATININE 0.9 mg/dL (0.7-1.3); GFR FOR AFR.AMER. > 60 ML/MIN (>=60 (CALC)); GFR OTHER RACES > 60 ML/MIN (>=60 (CALC)); SODIUM 135 mmol/l (137-146)
--- NOTE | 2022-08-11 19:00 | NUR ---
REPORT RECEIVED FROM MAXI GAINES. PT RESTING IN BED. NO DISTRESS.
--- NOTE | 2022-08-11 21:00 | NUR ---
PT TOLERATED MEDS WELL. RESTING IN BED AND WATCHING TELEVISION. PT CONTINUES WITH ATAXIA TO RUE, BUT IMPROVED.
--- NOTE | 2022-08-11 22:00 | NUR ---
TAKING OVER PTS CARE, REPORT RECEIVED FROM MAXI DAUGHERTY.
[2022-08-12] VITALS (14 sets, daily range): BP systolic 107–176; BP diastolic 61–95
--- NOTE | 2022-08-12 | NUR ---
SHIFT REASSESSMENT - PT ALERT AND ORIENTED. COMPLETED NIH STROKE ASSESSMENT AND PT SCORED 1 DUE TO VERY MILD ATAXIA TO THE RIGHT ARM. PT DOES NOT LOOK TO BE IN ANY DISTRESS. VITAL SIGNS ARE WITHIN NORMAL LIMITS. CALL LIGHT AND PERSONAL BELONGINGS WITHIN HIS REACH.
--- NOTE | 2022-08-12 02:00 | NUR ---
SHIFT REASSESSMENT - NO CHANGE IN PTS STATUS AT THIS TIME. CALL LIGHT AND PERSONAL BELONGINGS WITHIN REACH.
--- NOTE | 2022-08-12 04:00 | NUR ---
SHIFT REASSESSMENT - NO CHAGEN IN PTS STATUS AT THIS TIME.
--- NOTE | 2022-08-12 08:00 | NUR ---
RC'D REPORT, ASSISTED PT TO BATHROOM, PT ON ROOM AIR, LUNGS ARE CLEAR, PT DENIES ANY COMPLAINTS, PT BS 154, PT NIH SCORE 1, BED IN LOWEST POSITION, CALL LIGHT AT BEDSIDE, CONTINUE TO MONITOR
--- NOTE | 2022-08-12 10:00 | NUR ---
PT SITTING UP IN BED TALKING WITH VISITOR THAT IS AT BEDSIDE, NO CHANGE IN PT STATUS, PT AWAITING TRANSFER TO [facility], CONTINUE TO MONITOR
--- NOTE | 2022-08-12 11:50 | NUR ---
[facility] gave [facility] report
--- NOTE | 2022-08-12 12:35 | NUR ---
PT TRANSFERRED TO ROOM 262 FROM ICU 7. PT RESTING COMFORTABLY IN BED. NO NEEDS AT THIS TIME.
--- NOTE | 2022-08-12 15:48 | NUR ---
PT RESTING COMFORTABLY IN BED. VITAL SIGNS STABLE. NO NEEDS AT THIS TIME.
--- NOTE | 2022-08-12 20:00 | NUR ---
PATIENT RESTING IN BED AT THIS TIME. AWAKE ALERT AND ORIENTEDX3. PATIENT WITH NO COMPLAINTS AT THIS TIME. PATIENT IS HAVING SOME RIGHT SIDED WEAKNESS. SPEECH IS CLEAR. NO DIFFICULTY WITH SWALLOWING. ABLE TO FOLLOW COMMANDS. STATES THAT HE DOESN'T WASN'T WANT TO GO TO REHAB BUT WILL HAVE HOMETHERAPY WHEN DISCHARGE TO HIS SISTERS HOUSE. LUNGS ARE CLEAR. ABD IS SOFT WITH BM TODAY. VOIDING WITHOUT ANY DIFFICLUTY. NO PERIPHERAL EDEMA NOTED. SALINE LOCK TO LEFT AC INTACT AND REDRESSED. GOOD BLOOD RETURN. TELE MONITOR IN PLACE-LAST READING WAS SR-90'S. SAFETY PRECAUTIONS REINFORCED. CALL LIGHT IN REACH. WILL CONT TO MONITOR.
[2022-08-13] VITALS (7 sets, daily range): BP systolic 104–155; BP diastolic 63–92
--- NOTE | 2022-08-13 00:30 | NUR ---
PATIENT APPEARS SLEEPING AT THIS TIME. RESPS ARE EVEN AND UNLAB ORED. EYES ARE CLOSED. TELE MONITOR IN PLACE. SALINE LOCK INTACT. CALL LIGHT IN REACH. WILL CONT TO MONITOR.
--- NOTE | 2022-08-13 04:31 | NUR ---
PATIENT RESTING IN BED-EYES CLOSED. RESPS ARE EVEN AND UNLABORED. TELE MONITOR IN PLACE. CALL LIGHT IN REACH. WILL CONT TO MONITOR.
--- NOTE | 2022-08-13 07:37 | NUR ---
BEDSIDE SHIFT REPORT, PT SLEEPING BUT AWAKENED TO VERBAL STIMULI, ORIENED X 3, DENIES PAIN/DISWCOMFORT AT THIS TIME, TELE MONITOR IN PLACE, CALL ZENDEJAS IN REACH AND BED LOCKED IN LOWEST POSITION.
--- NOTE | 2022-08-13 20:00 | NUR ---
PATIENT RESTING IN BED AT THIS TIME-JUST TOOK SHOWER. PATIENT STATES CONCERNS ABOUT DISCHARGE AND WHEATHER HE CAN GET HOME HEALTH OR NOT. STATES THAT HE DOESN'T HAVE ANY INSURANCE AT THIS TIME. DENIES ANY PAIN AT THIS TIME. STILL WITH SOME RIGHT SIDE WEAKNESS. STILL WITH BALANCE PROBLEMS. TELE MONITOR IN PLACE-LAST READING WAS SR-90'S. SALIKNE LOCK TO LEFT AC INTACT AND FLUSHED. LUNGS ARE CLEAR. ABD IS SOFT. HAD BM TODAY. DENIES ANY DIFFICULTY WITH URINATION. NO PERIPHERAL EDEMA. PULSE ARE PALPABLE. SAFETY PRECAUTIONS. REINFORCED. CALL LIGHT IN REACH. WILL CONT TO MONITOR.
--- NOTE | 2022-08-14 | NUR ---
PATIENT RESTING IN BED AT THIS TIME WATCHING TV. NO COMPLAINTS AT THIS TIME. TELE MONITOR IN PLACE. SALINE LOCK INTACT TO LAC. CALL LIGHT IN REACH. WILL CONT TO MONITOR.
--- NOTE | 2022-08-14 04:17 | NUR ---
PATIENT RESTING IN BED-APPEARS SLEEPING WITH EYES CLOSED. RESPS ARE EVEN AND UNLABORED. CALL LIGHT IN REACH. WILL CONT TO MONITOR.
[2022-08-14 04:36] VITALS: BP 161/91
[2022-08-14 06:59] VITALS: BP 136/83
--- NOTE | 2022-08-14 07:43 | NUR ---
BEDSIDE SHIFT REPORT, PT SLEEPING SOUNDLY, BREATING EVEN AND NON-LABORED, TELE MOITOR IN PLACE, CALL ZENDEJAS IN REACH AND BED LOCKED IN LOWEST POSITION.
[2022-08-14 08:54] VITALS: BP 144/75
[2022-08-14 10:22] VITALS: BP 124/71
[2022-08-14] MEDS ORDERED: PLAVIX75 MG PO (11:36)
--- NOTE | 2022-08-14 12:00 | NUR ---
RESTING IN BED, NO NEW DEVELOPMENTS, CONDITION STABLE.
[2022-08-14 15:13] VITALS: BP 137/81
--- NOTE | 2022-08-14 18:00 | NUR ---
Discharge instructions given. Patient verbalizes understanding of same. Discharged in stable condition via Wheelchair to Home with family. All belongings sent with pt. PT UNABLE TO AMBULATE INDEPENDENTLY AND NEEDS ASSISTIVE DEVICE, CM SHOULD BE WORKING ON HOME HEALTH/PT BUT NO FINAL REPORT HAS BEEN OBTAINED, PT WAS ALLOWED TO BORROW ONE OF OUR WALKERS JUST SO HE CAN MOVE, HE SAID HE WOULD RETURN IT WHEN HE GOT HIS OWN.
== END 2022-08-14 18:15 | disposition home or self-care (01) | DRG 65 ==
LOC: ED 11:42 → ED-I 14:20 → ED 14:53 → ICU 14:54 → MS2 08-12 12:25
PROVIDERS: Family Medicine; ADMIT Internal Medicine; ATTEND Internal Medicine
DX: I63.81 Other cerebral infarction due to occlusion or stenosis of small artery (principal); G81.91 Hemiplegia, unspecified affecting right dominant side; R20.0 Anesthesia of skin; R27.8 Other lack of coordination; R29.701 NIHSS score 1; I10 Essential (primary) hypertension; E11.65 Type 2 diabetes mellitus with hyperglycemia; E78.5 Hyperlipidemia, unspecified; E55.9 Vitamin D deficiency, unspecified; G47.33 Obstructive sleep apnea (adult) (pediatric); F17.200 Nicotine dependence, unspecified, uncomplicated; Z86.73 Personal history of transient ischemic attack (TIA), and cerebral infarction without residual deficits; Z89.421 Acquired absence of other right toe(s); Z79.82 Long term (current) use of aspirin
CPT/HCPCS: Q9967